=== PATIENT | male | born 1985 | race Caucasian/White ===

== ENCOUNTER 2024-07-10 17:53 | Emergency (ER) | payer OTHER, SELFPAY ==
[2024-07-10 18:04] VITALS: BP 133/83; PULSE 91; RESP 16; TEMP 36.9; O2SAT 99; BMI 23.7
--- NOTE | 2024-07-10 18:25 | ED_ITS ---
HPI - Allergic Reaction General Chief complaint: Allergic Reaction Stated complaint: bug bite Time Seen by Provider: 07/10/24 18:07 History of Present Illness HPI narrative: This 39-year-old male comes in with numerous pruritic erythematous lesions on his chest and abdomen. He states that this began yesterday during the day. He does not know of any tick bite or other insect bite. He states that these isolated erythematous lesions are intensely itchy. There is no report of fever. He does not have any generalized rash. Related Data Previous Rx's ?Medication ?Instructions ?Recorded methylprednisolone 4 mg tablets in See Rx Instructions PO .COMPLEX 07/10/24 a dose pack (Medrol (Sam)) #21 ea triamcinolone acetonide 0.1 % 1 applic topical BID #15 grams 07/10/24 topical cream Allergies Allergy/AdvReac Type Severity Reaction Status Date / Time No Known Drug Allergies Allergy Verified 07/10/24 18:04 Review of Systems Status of ROS Reports: 10 or more systems reviewed and unremarkable except as noted in History and below Narrative Constitutional: No fevers, no weight gain or loss. Eyes: No discharge. No vision changes. HENT: No congestion, no sore throat, no ear pain. Cardiovascular: No chest pain, no palpitations. Respiratory: No shortness of breath, no wheezes, no cough. Gastrointestinal: No abdominal pain, no vomiting, no diarrhea. Genitourinary: No dysuria, no hematuria. Musculoskeletal: Normal range of motion. Skin: Isolated pruritic erythematous lesions on his chest and abdomen. Neurological: No dizziness, weakness, sensory change, speech change. Endo/Heme/Allergies: No bruising or bleeding. No polydipsia. Pysch: no suicidality, no anxiety, no insomnia. All other systems reviewed and are negative. Exam Narrative: Exam Narrative: Constitutional: Well-developed, well-nourished, no acute distress. HEENT: Normocephalic, atraumatic. Neck: Normal range of motion. Nontender. Supple. Heart: Intact distal pulses. Lungs: No chest discomfort. No wheezes, rhonchi, or rales. Abdomen: Nontender. Back: Normal range of motion. Extremities: Normal range of motion. No injury. Skin: Intact. The chest and abdomen and right axilla region have numerous isolated areas of erythema each measuring approximately 1-2 cm in diameter. These are pruritic. There is no sign of abscess or drainage. Neurologic: No altered sensation. No weakness. Alert and oriented. Psychiatric: No suicidality. No anxiety or depression. No insomnia. Nursing notes and vitals signs are reviewed. Const: Vital Signs, click to edit/add: Vital Signs - 24 hr 07/10/24 18:04 Temperature 98.5 F Pulse Rate [Pulse Oximeter] 91 Respiratory Rate 16 Blood Pressure [Ri ght Upper Arm] 133/83 Pulse Oximetry 99 Oxygen Delivery Me thod Room Air Course Vital Signs Vital signs: Initial Vital Signs Temperature 98.5 F 07/10/24 18:04 Temperature Source Temporal Artery Scan 07/10/24 18:04 Pulse Rate 91 07/10/24 18:04 Respiratory Rate 16 07/10/24 18:04 Blood Pressure 133/83 07/10/24 18:04 Blood Pressure Mean 99 07/10/24 18:04 Pulse Oximetry 99 07/10/24 18:04 Oxygen Delivery Method Room Air 07/10/24 18:04 Vital Signs Temperature 98.5 F 07/10/24 18:04 Pulse Rate 91 07/10/24 18:04 Respiratory Rate 16 07/10/24 18:04 Blood Pressure 133/83 07/10/24 18:04 Pulse Oximetry 99 07/10/24 18:04 Oxygen Delivery Method Room Air 07/10/24 18:04 Temperature 98.5 F 07/10/24 18:04 Pulse Rate 91 07/10/24 18:04 Respiratory Rate 16 07/10/24 18:04 Blood Pressure 133/83 07/10/24 18:04 Pulse Oximetry 99 07/10/24 18:04 Oxygen Delivery Method Room Air 07/10/24 18:04 MDM - Allergic Reaction MDM Narrative Medical decision making narrative: This patient is having a pruritic rash as a reaction to some kind of exposure that is unknown. It is not a generalized rash but rather more isolated itchy lesions perhaps from some kind of bug bite. I did examine these areas under magnification and did not identify any kind of foreign object. He is not showing any sign of infection. I advised the patient to use antihistamines [id number] as needed and directed. He also received a prescription for Medrol Dosepak and triamcinolone cream. I did advise him regarding signs and symptoms that would indicate a need for return re-evaluation. Discharge Plan Discharge Clinical Impression: Allergic reaction Patient Disposition: Home, Self-Care Condition: Stable Additional Instructions: Use medications as prescribed. Okay also to use [id number] antihistamine such as Claritin, Zyrtec, or Viola. Follow up with MD return if worsening. Prescriptions: New triamcinolone acetonide 0.1 % cream 1 applic topical BID Qty: 15 0RF methylprednisolone [Medrol (Sam)] 4 mg tablets,dose pack See Rx Instructions .ROUTE .COMPLEX Qty: 21 0RF Rx Instructions: orally per package directions Follow Up/Referrals: Provider,Not a Local [Primary Care Provider] - Stand Alone Forms: eduClipper Info Instructions
== END 2024-07-10 19:08 | disposition home or self-care (01) ==
LOC: ED 18:46
PROVIDERS: Emergency Provider Emergency Medicine Emergency Medical Services
DX: R21 Rash and other nonspecific skin eruption (principal); T78.40XA Allergy, unspecified, initial encounter
CPT/HCPCS: 99282; 99285